=== PATIENT | male | born 1960 | race Two or more races ===

== ENCOUNTER → 2017-05-22 | Outpatient (CLI) | payer OTHER ==
[~2017-05-22] MED LIST: ASA-EC81 MG; ASA81 MG; METOPROLOL SUCC25 MG; VASOFLEX FORTE1 CAP PO; VASOTEC2.5 MG PO; ZOCOR40 MG
== END | disposition home or self-care (01) ==
LOC: PPHC 16:25
DX: R53.1 Weakness (principal)

== ENCOUNTER 2019-08-10 15:29 | Emergency (ER) | payer OTHER ==
[~2019-08-10] VITALS: Ht 152.4 cm; Wt 72.6 kg
[2019-08-11] MEDS ORDERED: INTESTINEX680 M1 PO (01:16)
[2019-08-11] MEDS ORDERED: LEVSIN/SL0.125 MG SL (01:16)
== END 2019-08-11 01:26 | disposition home or self-care (01) ==
LOC: ER 15:29
DX: K80.20 Calculus of gallbladder without cholecystitis without obstruction (principal)

== ENCOUNTER 2020-01-16 19:17 | Emergency (ER) | payer OTHER ==
[~2020-01-16] VITALS: Ht 162.6 cm; Wt 72.1 kg
[~2020-01-16 19:17] MED LIST changes: +INTESTINEX680 M1 PO; +LEVSIN/SL0.125 MG SL
[2020-01-16] MEDS ORDERED: INTESTINEX680 M2 PO (23:13)
[2020-01-16] MEDS ORDERED: AMOX1TAB5 PO (23:13)
[2020-01-16] MEDS ORDERED: LEVOFLOXACIN750 MG PO (23:17)
[2020-01-16] MEDS ORDERED: SILVADENE20 GM TOP (23:17)
== END 2020-01-17 00:17 | disposition home or self-care (01) ==
LOC: ER 19:17
DX: T24.102A Burn of first degree of unspecified site of left lower limb, except ankle and foot, initial encounter (principal); W86.8XXA Exposure to other electric current, initial encounter; Y93.89 Activity, other specified; Y92.89 Other specified places as the place of occurrence of the external cause; Y99.8 Other external cause status